=== PATIENT | male | born 1940 | race Caucasian/White ===

== ENCOUNTER 2016-06-14 13:41 | Emergency (ER) | payer MEDICARE, OTHER ==
[2016-06-14] MEDS ORDERED: DIPHTH,PERTUSS(ACELL),TET VAC 0.5 ML VIAL IM ONE ×2 (13:50→13:53)
[2016-06-14 13:55] VITALS: BP 127/39
--- NOTE | 2016-06-14 14:06 | ERNOTE ---
Integumentary HPI - Narrative Date of Service: 06/14/16 - General Presenting Symptoms: other Time Seen by Provider: 06/14/16 13:45 Source: family Exam Limitations: dementia - Immun/Allergies/Home Medications Allergies/Adverse Reactions: Allergies Allergy/AdvReac Type Severity Reaction Status Date / Time No Known Allergies Allergy Verified 06/14/16 13:55 Home Medications: HOME MEDICATIONS Aspirin [Aspirin Enteric Coated] 81 mg PO HS 12/22/12 [Last Taken Unknown] Clobetasol Propionate 1 dose TP HS 12/22/12 [Last Taken Unknown] Donepezil HCl 10 mg PO DAILY 12/22/12 [Last Taken Unknown] Fenofibrate Nanocrystallized [Tricor] 145 mg PO DAILY 12/22/12 [Last Taken Unknown] Glimepiride [Amaryl] 4 mg PO BID@0700,1700 12/22/12 [Last Taken Unknown] Memantine HCl [Namenda] 10 mg PO BID 12/22/12 [Last Taken Unknown] Gifford-3 Fatty Acids [Fish Oil] 500 mg PO DAILY 12/22/12 [Last Taken Unknown] Ranitidine HCl 150 mg PO BID 12/22/12 [Last Taken Unknown] Valsartan/Hydrochlorothiazide [Diovan Hct 80-12.5 mg Tablet] 1 each PO DAILY [Last Taken Unknown] Cephalexin Monohydrate [Keflex] 500 mg PO QID #40 cap 06/14/16 [Last Taken Unknown] - History of Present Illness Narrative: This is a 75 y/o man with diabetes and dementia who hit the dorsum of his left hand inside at home a few days ago. Yesterday it began to look infected. so family brought him by private vehicle to the [facility] ER today. No fever at home. Location: Reports: upper extremity Quality: Reports: other - poor historian Severity: mild Exposure: Reports: other Modifying Factors - (Improves): Reports: nothing Modifying Factors - (Worsens): Reports: nothing Associated Symptoms: Reports: denies symptoms Prior Treatment: Denies: currently on antibiotics Review of Systems - Review of Systems Constitutional: Present: no symptoms reported EYE: Present: no symptoms reported ENT: Present: no symptoms reported Respiratory: Present: no symptoms reported Cardiology: Present: no symptoms reported Gastrointestinal/Abdominal: Present: no symptoms reported Genitourinary: Present: no symptoms reported Musculoskeletal: Present: no symptoms reported Skin: Present: See HPI Neurological: Present: pre-existing deficit Endocrine: Present: no symptoms reported Hematologic/Lymphatic: Present: no symptoms reported Psych: Present: no symptoms reported All Other Systems: All systems neg except as marked - Patient's Past Medical History Patient History - Medical: Diabetes Type 2, Dementia Patient History - Cardiac/Respiratory: No pertinent hx Patient History - Cancer: No Hx of Cancer Physical Exam - Physical Exam General Appearance: Present: wd/wn, alert, no apparent distress, thin Eye Exam: Normal inspection: bilateral, PERRL: bilateral, EOMI: bilateral Ears, Nose, Throat: Present: normal ENT inspection Neck: Present: normal inspection Respiratory: Present: no respiratory distress Cardiovascular/Chest: Present: regular rate, rhythm Extremity Exam: Present: other - 1" abrasion with small amount purulent drainage and 3" surrounding redness dorsum of left hand. Absent: pedal edema Neurological Exam: Present: alert, disoriented to time, disoriented to place, disoriented to situation Skin Exam: Present: normal color, warm/dry ED Progress - Vital Signs Patient's Vital Signs:: I have reviewed the patient's vital signs. Vital Signs: Vital Signs 06/14/16 13:52 Temperature 37.1 C Pulse Rate 62 Respiratory 12 Rate Blood Pressure 127/39 O2 Sat by Pulse 100 Oximetry - Progress/Reassessment Chief Complaint: Cellulitis Departure Clinical Impression: Abrasion Cellulitis Qualifiers: Site of cellulitis: extremity Site of cellulitis of extremity: upper extremity Laterality: left Qualified Code(s): L03.114 - Cellulitis of left upper limb - Departure Disposition: Home self-care Condition: Good Instructions: Cellulitis, Adult, [id number] Additional Instructions: Use bacitracin over the counter ointment, telfa, roll gauze and coban and change the dressing daily. Follow up with Lexie Rayo in 2-3 days Referrals: Lexie Rayo FNP [Primary Care Provider] - Prescriptions: Cephalexin Monohydrate [Keflex] 500 mg PO QID #40 cap
== END 2016-06-14 14:26 | disposition home or self-care (01) ==
LOC: ER 13:41
DX: S60.512A Abrasion of left hand, initial encounter (principal); L03.114 Cellulitis of left upper limb; X58.XXXA Exposure to other specified factors, initial encounter; Y93.9 Activity, unspecified; Y92.009 Unspecified place in unspecified non-institutional (private) residence as the place of occurrence of the external cause; Y99.9 Unspecified external cause status; Z23 Encounter for immunization